=== PATIENT | male | born 1950 | race American Indian/Alaskan Native ===

== ENCOUNTER 2016-04-30 22:59 | Emergency (ER) | payer MEDICARE ==
[2016-05-01] MEDS ORDERED: NACL 0.9% 1000 ML 1,000 ML IV ONE (00:20)
[2016-05-01 01:08] LABS: Basophils % (Auto) 0.3 % (0.0-1.8); Eosinophils % (Auto) 0.7 % (0.0-4.3); Hemoglobin 10.8 gm/dl (11.8-15.2); Mean Corpuscular HGB Conc 33 % (32-34); Mean Corpuscular Hemoglobin 33 pg (28-32); Mean Corpuscular Volume 101 fl (84-94); Platelet Count 270 K/mm3 (140-440); Red Blood Count 3.26 M/mm3 (3.65-5.03); Red Cell Distribution Width 16.1 % (13.2-15.2); White Blood Count 5.8 K/mm3 (4.5-11.0)
[2016-05-01 01:13] LABS: Alanine Aminotransferase 24 units/L (7-56); Albumin 3.8 g/dL (3.9-5); Albumin/Globulin Ratio 1.4 %; Alkaline Phosphatase 96 units/L (35-129); BUN/Creatinine Ratio 19.16; Bilirubin,Total 0.6 mg/dL (0.1-1.2); Blood Urea Nitrogen 23 mg/dL (9-20); Calcium 8.6 mg/dL (8.4-10.2); Carbon Dioxide 23 mmol/L (22-30); Chloride 102.8 mmol/L (98-107); Glucose 145 mg/dL (75-100); Lipase 35 units/L (13-60); Potassium 4.3 mmol/L (3.6-5.0); Sodium 142 mmol/L (137-145); Total Protein 6.6 g/dL (6.3-8.2)
[2016-05-01 01:27] LABS: Anion Gap 21 mmol/L
[2016-05-01 01:28] LABS: INR 1.07 (0.87-1.13)
[2016-05-01 01:29] LABS: Partial Thromboplastin Time 27.5 Sec. (24.2-36.6)
[2016-05-01] MEDS ORDERED: NACL ONE (02:49)
--- NOTE | 2016-05-01 02:57 | Emergency Department Report ---
HPI - General Chief Complaint: GI Bleed Time Seen by Provider: 05/01/16 01:21 - HPI HPI: This is a 65-year-old Afro-[place] male who presents to the emergency department after he had dark red blood per rectum with some loose stool at about 10 PM. He had another bowel movement that was very similar just afterwards. He denies any abdominal pain, rectal pain, fever, nausea, vomiting , back pain. Patient has history of prostate cancer that was recently diagnosed in January and he has not yet started any type of chemotherapy or radiation. He also has history of non-insulin dependent diabetes, hypertension , hepatitis C. He has not taken anything for symptoms. Presentation. No recent travel or sick contacts at home. ED Past Medical Hx - Past Medical History Previous Medical History?: Yes Hx Hypertension: Yes Hx Diabetes: Yes Hx of Cancer: Yes (prostate ca) Additional medical history: hep c - Surgical History Past Surgical History?: Yes Additional Surgical History: stent to legs - Medications Home Medications: Home Medications Medication Instructions Recorded Confirmed Last Taken Type Albuterol Sulfate [Ventolin HFA] 2 puff IH Q4H PRN 05/01/16 05/01/16 1 Day Ago History 2 Amitriptyline [Elavil] 25 mg PO QHS 05/01/16 05/01/16 1 Day Ago History 25 Aspirin EC [Aspirin Enteric Coated 81 mg PO QDAY 05/01/16 05/01/16 1 Day Ago History TAB] 81 Doxazosin Mesylate [Cardura Xl] 4 mg PO DAILY 05/01/16 05/01/16 1 Day Ago History 4 Lisinopril [Zestril] 20 mg PO QDAY 05/01/16 05/01/16 1 Day Ago History 20 Metoprolol Xl [Metoprolol 100 mg PO QDAY 05/01/16 05/01/16 1 Day Ago History SUCCINATE ER TAB] 100 Simvastatin [Zocor TAB] 20 mg PO QHS 05/01/16 05/01/16 1 Day Ago History 20 metFORMIN [Glucophage] 500 mg PO BID 05/01/16 05/01/16 1 Day Ago History 500 traMADol [Ultram] 50 mg PO Q6HR PRN 05/01/16 05/01/16 1 Day Ago History 50 ED Review of Systems ROS: Stated complaint: RECTAL BLEEDING Other details as noted in HPI Comment: All other systems reviewed and negative Constitutional: denies: chills, fever Eyes: denies: eye pain, eye discharge, vision change ENT: denies: ear pain, throat pain Respiratory: denies: cough, shortness of breath, wheezing Cardiovascular: denies: chest pain, palpitations Gastrointestinal: abdominal pain, other (BRBPR). denies: nausea, vomiting, melena Genitourinary: denies: urgency, dysuria Musculoskeletal: denies: back pain, joint swelling, arthralgia Skin: denies: rash, lesions Neurological: denies: headache, weakness, paresthesias Physical Exam - Physical Exam Vital Signs: Vital Signs 04/30/16 23:58 Temperature 98.2 F Pulse Rate 133 H Respiratory 18 Rate Blood Pressure 116/75 O2 Sat by Pulse 99 Oximetry Physical Exam: GENERAL: The patient is well-developed well-nourished. HEENT: Normocephalic. Atraumatic. Extraocular motions are intact. Patient has moist mucous membranes. Pupils equal reactive to light bilaterally. NECK: Supple. Trachea is midline. CHEST/LUNGS: Clear to auscultation. There is no respiratory distress noted. HEART/CARDIOVASCULAR: Regular. There is mild tachycardia. There is no gallop rub or murmur. ABDOMEN: Abdomen is soft, nontender. Patient has normal bowel sounds. There is no abdominal distention. SKIN: There is no rash. There is no edema. There is no diaphoresis. NEURO: The patient is awake, alert, and oriented. The patient is cooperative. The patient has no focal neurologic deficits. The patient has normal speech. MUSCULOSKELETAL: There is no tenderness or deformity. There is no limitation range of motion. There is no evidence of acute injury. RECTAL: No rectal lesions seen. No gross blood. Positive stool for guaiac. ED Course Vital Signs 04/30/16 23:58 Temperature 98.2 F Pulse Rate 133 H Respiratory 18 Rate Blood Pressure 116/75 O2 Sat by Pulse 99 Oximetry ED Medical Decision Making - Lab Data Result diagrams: 05/01/16 00:34 05/01/16 00:34 - Radiology Data Radiology results: report reviewed CT of the abdomen and pelvis with IV contrast shows a 1 cm cyst in the mid pole of the left kidney. No kidney stones. No hydronephrosis. There is thickening of the distal esophagus. Stomach is also somewhat thickened. Esophagitis and gastritis not excluded. There is no obstruction or mass. No small bowel obstruction or enteritis. There are scattered diverticula of the colon. There is no diverticulitis or colitis or obstruction or mass. The appendix is normal. There is calcified plaque to the abdominal aorta. There is no aneurysm. There is no ascites, free air, abscess or adenopathy. - Medical Decision Making 65-year-old male presents to the emergency department with 2 episodes of bleeding per rectum but no pain in the abdomen or rectum. Patient's vitals have been stable including being afebrile, however the patient did have some tachycardia when he first came in. He was given IV fluid resuscitation and his tachycardia has completely resolved. Patient's labs are unremarkable and he has a stable hemoglobin at 10.5. Abdominal x-ray was done that did not show any acute process. However a CT of the abdomen and pelvis was done secondary to the fact that the patient has recent diagnosis of prostate cancer and I wanted to search for any possible metastasis or intestinal invasion that could be causing his bleeding. However the CT of the abdomen and pelvis shows diverticulosis without diverticulitis. This is most likely the source of the patient's bleeding. Patient has some positive stool for guaiac but no gross blood. He will be given a referral for a rn licensed practical and understands he may need a colonoscopy in the near future. He will return to the ER with any worsening of symptoms or any acute distress. - Differential Diagnosis hemorrhoids, diverticulosis, diverticulitis, colitis, malignancy Critical Care Time: No Critical care attestation.: If time is entered above; I have spent that time in minutes in the direct care of this critically ill patient, excluding procedure time. ED Disposition Clinical Impression: Rectal bleeding Diverticulosis Qualifiers: Diverticulosis site: diverticulosis of large intestine Diverticulosis bleeding : diverticulosis with bleeding Qualified Code(s): K57.31 - Diverticulosis of large intestine without perforation or abscess with bleeding Disposition: DISCHARGED TO HOME OR SELFCARE Is pt being admited?: No Does the pt Need Aspirin: No Condition: Stable Instructions: Diverticulosis (ED), Diverticulosis Diet (ED), Rectal Bleeding ( ED) Additional Instructions: Please follow-up with your primary care doctor in the next few days. I'll give him a referral for a local rn licensed practical to follow up regarding the rectal bleeding and diverticulosis, as you may need a colonoscopy in the near future. Return to the emergency department with any worsening of your symptoms or any acute distress. Referrals: JOSSE DAVIS V [Other] - 3-5 Days ORESTES DICKSON MD [Staff Physician] - 3-5 Days Forms: Accompanied Note Time of Disposition: 06:37
--- NOTE | 2016-05-01 06:25 | Cat Scan Report ---
FINAL REPORT PROCEDURE: CT ABDOMEN PELVIS W CON TECHNIQUE: Computerized axial tomography of the abdomen and pelvis was performed after the IV injection of iodinated nonionic contrast. HISTORY: Abd pain rectal bleeding COMPARISON: No prior studies are available for comparison. FINDINGS: Visualized lower thorax: No significant abnormality. Liver: Normal size and attenuation. Spleen: Normal size and attenuation. Gallbladder and biliary system: Normal. Pancreas: Normal. Adrenals: Normal. Kidneys: There is a 1 centimeters cyst in the midpole of the left kidney. There are no kidney stones. There is no hydronephrosis.. GI tract: There is thickening of the distal esophagus. Stomach is also somewhat thickened. Esophagitis and gastritis not excluded. There is no obstruction or mass. There is no small bowel obstruction or enteritis. There are scattered diverticula of the colon. There is no diverticulitis or colitis or obstruction or mass. If symptoms persist, colonoscopy may be indicated. The appendix is normal. Lymph nodes and mesentery: Normal. Vasculature: There is calcified plaque in the abdominal aorta. There is no aneurysm.. Bladder: Normal. Reproductive organs: Normal. Peritoneum: There is no ascites, free air, abscess or adenopathy.. Musculoskeletal structures: No significant abnormality. Other: There scarring in the right groin possibly from prior surgery.. IMPRESSION: There is a 1 centimeters cyst in the midpole of the left kidney. There are no kidney stones. There is no hydronephrosis.. There is thickening of the distal esophagus. Stomach is also somewhat thickened. Esophagitis and gastritis not excluded. There is no obstruction or mass. There is no small bowel obstruction or enteritis. There are scattered diverticula of the colon. There is no diverticulitis or colitis or obstruction or mass. If symptoms persist, colonoscopy may be indicated. The appendix is normal. There is calcified plaque in the abdominal aorta. There is no aneurysm.. There is no ascites, free air, abscess or adenopathy.. There scarring in the right groin possibly from prior surgery..
[2016-05-01 06:49] VITALS: BP 126/72
== END 2016-05-01 06:48 | disposition home or self-care (01) ==
LOC: ED 22:59
DX: K57.31 Diverticulosis of large intestine without perforation or abscess with bleeding (principal); K62.5 Hemorrhage of anus and rectum; I10 Essential (primary) hypertension; E11.9 Type 2 diabetes mellitus without complications; Z85.46 Personal history of malignant neoplasm of prostate; Z79.82 Long term (current) use of aspirin
CPT/HCPCS: 36415; 74020; 74177; 80053; 83690; 85025; 85610; 85730; 86850; 86900; 86901; 93005; 93010; 96360; 96361; 99285; J7030; Q9967

== ENCOUNTER 2016-06-25 06:13 | Inpatient (IN) | payer MEDICARE ==
--- NOTE | 2016-06-19 11:34 | Anesthesia Consultation ---
Anesthesia Consult and Med Hx Date of service: 06/19/16 (Scheduled for Robotic Prostatectomy w/ Dr. Perdomo on 06/25/16) - Airway Anesthetic Teeth Evaluation: Poor ROM Head & Neck: Adequate Mental/Hyoid Distance: Adequate Mallampati Class: Class II Intubation Access Assessment: Probably Good - Pulmonary Exam CTA: Yes - Cardiac Exam Cardiac Exam: RRR - Pre-Operative Health Status ASA Pre-Surgery Classification: ASA3 Proposed Anesthetic Plan: General - Pre-Anesthesia Comment Pre-Anesthesia Comments: No previous anesthesia complications. - Pulmonary Hx Smoking: Yes (1/2 PPD X 50 YRS) Hx Sleep Apnea: No (BRISEIDA PRE SCREEN HIGH RISK) - Cardiovascular System Hx Hypertension: Yes (X 12 YRS) Hx Coronary Artery Disease: No Hx Cardia Arrhythmia: Yes (Parox A. Fib) Hx Peripheral Vascular Disease: Yes (STENTS ESTEFANI LEGS, s/p Carotid endarterectomy ) - Central Nervous System Hx Seizures: No CVA: Yes (1994-SLURRED SPEACH AND LEFT SIDED WEAKNESS) - Gastrointestinal Hx Gastroesophageal Reflux Disease: No - Endocrine Hx Renal Disease: No Hx Non-Insulin Dependent Diabetes: Yes - Hematic Hx Anemia: Yes - Other Systems Hx Substance Use: Yes (MARIJUANA 2-3 X PER WEEK) Hx Cancer: Yes (Newly diagnosed prostate CA) Hx Obesity: No - Additional Comments Anesthesia Medical History Comments: Pt with h/o Parox A. Fib since 1994, states has occassional palpitations. Does not follow with cardiology. CHADSVASc = 6 (previous CVA, HTN, DM, PVD, Age) and current smoker. Unsure why pt not on OAC- high risk for CVA. Risks discussed with patient, needs f/u with cardiology after surgery.
[2016-06-19 11:35] LABS: Basophils % (Auto) 0.4 % (0.0-1.8); Hemoglobin 12.9 gm/dl (11.8-15.2); Mean Corpuscular HGB Conc 32 % (32-34); Mean Corpuscular Hemoglobin 31 pg (28-32); Mean Corpuscular Volume 95 fl (84-94); Platelet Count 282 K/mm3 (140-440); White Blood Count 5.2 K/mm3 (4.5-11.0)
[2016-06-19 11:45] LABS: INR 1.03 (0.87-1.13)
[2016-06-19 11:46] LABS: Partial Thromboplastin Time 29.2 Sec. (24.2-36.6)
[2016-06-19 11:54] LABS: Red Cell Distribution Width 23.3 % (13.2-15.2)
[2016-06-19 12:08] LABS: Alanine Aminotransferase 23 units/L (7-56); Albumin 4.2 g/dL (3.9-5); Albumin/Globulin Ratio 1.2 %; Alkaline Phosphatase 108 units/L (35-129); Anion Gap 19 mmol/L; BUN/Creatinine Ratio 15.71; Bilirubin,Total 0.9 mg/dL (0.1-1.2); Blood Urea Nitrogen 11 mg/dL (9-20); Calcium 9.1 mg/dL (8.4-10.2); Carbon Dioxide 21 mmol/L (22-30); Chloride 105.5 mmol/L (98-107); Glucose 83 mg/dL (75-100); Potassium 4.4 mmol/L (3.6-5.0); Sodium 141 mmol/L (137-145); Total Protein 7.6 g/dL (6.3-8.2)
--- NOTE | 2016-06-22 08:47 | Admit Criteria Form ---
Admission Criteria Documentation: AMBULATORY SURGERY EXCEPTION CRITERIA Ambulatory Surgery Exception Criteria ( Place 'X' for any and all applicable criteria): Surgery or procedure performed on ambulatory basis may require inpatient stay for[A] ANY ONE of the following(1)(2)(3)(4)(5)(6)(7)(8)(9): [X] I. A preoperative situation, condition, or finding that warrants inpatient stay as indicated by ANY ONE of the following: [] a) Inpatient care needed because of severity of a disease or condition rather than the surgery (eg, severe cardiac or respiratory disease, severe infection) (15) (16 ) (17) (18) [] b) Emergent procedure (eg, angioplasty for acute ischemia)(19) [] c) Complex surgical approach or situation as indicated by ANY ONE of the following(3): [] i) Open approach needed instead of usual endoscopic, transcatheter, or other less invasive procedure [] ii) Difficult approach because of previous operation [] iii) Airway monitoring required after open neck procedures(20)(21) [] iv) Large mass requiring unusually extensive dissection [] v) Additional complicating feature requiring inpatient care (eg, drain management)(22(23): [X] d) Major surgery in a pt with high anesthetic risk as indicated by ANY ONE of the following (2)(3)(5)(7)(8): [X] i) ASA risk class III or higher (severe systemic disease impairing function) [D] [] ii) Advanced age (eg, older than 85 years)(14)(24) [] iii) Symptomatic heart failure(25) [] iv) Symptomatic asthma or COPD(8)(21) [] v) Morbid obesity with hemodynamic or respiratory problems(20)( 21)(26)(27) [] vi) Obstructive sleep apnea(20)(21) [] vii) Former premature infants who are younger than 60 weeks [] viii) High risk for severe postoperative abnormalities (eg, severe postoperative hypocalcemia after parathyroidectomy for severe hyperparathyroidism)(27)( 28) [] ix) Unstable angina(25) [] e) Drug-related risk requiring inpatient stay as indicated by ANY ONE of the following(5)(10)(14)(32)(33) [] i) Procedure requires discontinuing drugs or other therapy (eg , antiarrhythmic medication, antiseizure medication), which necessitates inpatient observation or treatment.(18)(31) [] ii) Major surgery and high risk drug use as indicated by ANY ONE of the following: [] 1) Active abuse of cocaine or similar drug [] 2) Monoamine oxidase inhibitor use [] 3) Other drug identified as posing risk [] f) Inadequate outpatient care situation as indicated by ANY ONE of the following(5)(10)(14)(32)(33) [] i) Patient lives remote from medical facility and procedure has urgent complication potential, and temporary nearby residence cannot be arranged [] ii) Patient will have postprocedure incapacitation and inadequate assistance at home, or alternative level of care cannot be arranged. [] iii) Patient will have long general anesthesia or procedure side effect resolution time, and competent person to stay with patient on first postoperative night at home or alternative level of care cannot be arranged. []iv) Other inadequate outpatient situation that cannot be handled by other means [] II. A perioperative event, condition, or finding that warrants inpatient stay as indicated by ANY ONE of the following (1)(2)(3): [] a) Inadequate physiologic recovery: cardiovascular, respiratory, or hemodynamic status not normal or near preoperative baseline(18) [] b) Hemodynamic instability [] c) Patient not alert with near normal or baseline mental status [] d) Temperature not normal or as expected and not appropriate for outpatient treatment of condition [] e) Ambulatory or appropriate activity level status not yet achieved post procedure [E](34)(35)(36) [] f) Operative site not appropriate (eg, unexpected or excessive drainage or bleeding) [] g) Postoperative effects not resolved or adequately managed (eg, significant pain or vomiting not appropriate for outpatient or next level of care)(10)(12) [] h) Complicating features requiring inpatient care as indicated by ANY ONE of the following(37): [] i) Severe complications of procedure (eg, bowel injury, airway compromise, vascular injury,severe hemorrhage) [] ii) Extensive (eg, dissection far beyond usual scope of procedure ) or prolonged (eg, 120 minutes beyond usual) surgery needed requiring inpatient postoperative care [] iii) Conversion to an open or complex procedure that requires inpatient care (eg, open vs laparoscopic cholecystectomy, abdominal vs vaginal hysterectomy)(38) [] iv) Comorbid condition or test result identified during or post procedure that requires inpatient care (7) [] v) Malignant hyperthermia(30) [] vi) Other complicating feature requiring inpatient care(22)(23) Inpatient stay may be needed until ALL of the following are present (1)(2)(3)(4) (5)(6)(10)(14)(33)(40): []a) Physiologic recovery: cardiovascular, respiratory, and hemodynamic status normal or near preoperative baseline []b) Hemodynamic stability []c) Patient alert, with near normal or baseline mental status []d) Temperature appropriate: patient afebrile or temperature appropriate for outpt treatment of condition []e) Activity level appropriate: ambulatory or appropriate activity level post procedure []f) Operative site appropriate as indicated by ALL of the following: []i) Site dry or with expected drainage []ii) Any blood noted is as expected for procedure. []g) Postoperative effects resolved or managed as indicated by ALL of the following: []i) Pain management appropriate for outpatient (or next level of) care(10) []ii) Minimal nausea and vomiting: if present, successfully treated with oral medication(12) []iii) Headache, dizziness, or drowsiness (if present) are mild. []h) Voiding status acceptable as indicated by ANY ONE of the following: []i) Voiding spontaneously []ii) No voiding but instructions given for follow-up in 6 to 8 hours []iii) Urinary catheter in place, and instructions given for follow-up []i) Complicating features requiring inpatient care manageable at a lower level of care(37) []j) Comorbid conditions manageable at a lower level of care(37) The original [employer] content created by [employer] has been revised. The portions of the content which have been revised are identified through the use of italic text or in bold, and [facility] [employer] has neither reviewed nor approved the modified material. All other unmodified content is copyright [employer]. Please see references footnoted in the original [employer] edition 2016 Admission Criteria Met: Yes
[~2016-06-25 06:13] MED LIST: ANCEF/STERILE WATER 2 GM/20 ML IV NR; NACL 0.9% 1000 ML 1,000 ML IV SCH; PEPCID PO NR; VERSED IV NR
[2016-06-25] MEDS ORDERED: NACL BACTERIOSTATIC INFILTRATI ONE (06:40)
[2016-06-25] MEDS ORDERED: SUBLIMAZE IV NR (07:14)
[2016-06-25] MEDS ORDERED: ZOFRAN IV PRN ×2 (07:14→12:00)
[2016-06-25] MEDS ORDERED: MARCAINE-EPI 0.5%-1:200,000 INFILTRATI ONE ×2 (07:30→09:05)
[2016-06-25] MEDS ORDERED: DECADRON ONE (07:30)
[2016-06-25] MEDS ORDERED: MARCAINE-EPI/PF 0.5%-1:200,000 INFILTRATI ONE (07:30)
[2016-06-25] MEDS ORDERED: XYLOCAINE 1% 20 mL ONE (07:31)
--- NOTE | 2016-06-25 07:33 | Anesthesia Day of Surgery ---
Anesthesia Day of Surgery - Day of Surgery Patient Examined: Yes Patient H&P Reviewed: Yes Patient is NPO: Yes Beta Blockers: Yes
[2016-06-25] MEDS ORDERED: DIPRIVAN 10 MG/ML IV ONE (07:45)
[2016-06-25] MEDS ORDERED: DILAUDID ONE (07:45)
[2016-06-25] MEDS ORDERED: ZEMURON IV ONE (07:45)
[2016-06-25] MEDS ORDERED: XYLOCAINE MPF 2% ONE (07:45)
[2016-06-25] MEDS ORDERED: WATER FOR IRRIG STERILE IR ONE (09:05)
[2016-06-25] MEDS ORDERED: NACL 0.9% IR ONE ×2 (09:05→09:06)
[2016-06-25] MEDS ORDERED: ACD-A IV ONE (09:06)
[2016-06-25] MEDS ORDERED: THROMBIN (BOVINE) TP ONE (09:07)
[2016-06-25] MEDS ORDERED: CALCIUM CHLORIDE IV ONE (09:07)
[2016-06-25] MEDS ORDERED: NACL 0.9% 1000 ML ONE (09:51)
[2016-06-25] MEDS ORDERED: NACL 0.9% 100 ML ONE (09:51)
[2016-06-25] MEDS ORDERED: ZOFRAN ONE (09:51)
[2016-06-25] MEDS ORDERED: ROBINUL ONE (09:52)
[2016-06-25] MEDS ORDERED: NEOSTIGMINE ONE (09:52)
[2016-06-25] MEDS ORDERED: D50W (25GM) IV PRN (10:40)
[2016-06-25] MEDS ORDERED: NARCAN 0.4 MG/1 ML IV PRN (10:40)
--- NOTE | 2016-06-25 10:40 | Post Operative Note ---
Pre-op diagnosis: prostate cancer - jacoby 3+4 / psa 5.5 Post-op diagnosis: same Procedure: robotic propstatectomy Anesthesia: GETDayanna Surgeon: MAYUR LYNCH [employer] Coordinator: NICOLÁS DONNELLY Estimated blood loss: other (250cc) Pathology: list (prostate) Specimen disposition: to lab Condition: stable Disposition: PACU (jesenia case, post op info on chart)
[2016-06-25] MEDS ORDERED: PROAIR IH PRN (10:45)
[2016-06-25] MEDS ORDERED: MORPHINE IV PRN (11:00)
[2016-06-25] MEDS ORDERED: NACL 0.9% 1000 ML 1,000 ML IV SCH (11:00)
[2016-06-25] MEDS ORDERED: NORCO 5/325 PO PRN (11:00)
[2016-06-25] MEDS: DILAUDID IV PRN ×8 (11:05→13:25)
--- NOTE | 2016-06-25 11:50 | Operative Report ---
PREOPERATIVE DIAGNOSES: Prostate cancer, [place] 3+4, PSA 5.5. POSTOPERATIVE DIAGNOSES: Prostate cancer, [place] 3+4, PSA 5.5. SECONDARY DIAGNOSES: Hypertension, diabetes, hepatitis C. PROCEDURE: Robotic-assisted laparoscopic prostatectomy. SURGEON: Nader Perdomo MD HARDENING MACHINE OPERATOR: Valentin Garcia ANESTHESIA: General. ANESTHESIOLOGIST: Kristi York MD ESTIMATED BLOOD LOSS: 250 mL. FLUIDS: Crystalloid 125 of Cell Saver. Nghia-Aldana drain x 1. COMPLICATIONS: No complications. INDICATIONS: This patient is a 65-year-old gentleman referred by Dr. Elías Greenfield with the diagnosis of prostate cancer. The patient has relocated from [place], [place], where he underwent prostate biopsy in 01/[address] Hanson . He was found to have a [place] score 3+4 bilaterally with a PSA of 5.5. We discussed options. Written information was given. He agreed to proceed with surgical intervention. Also, of note, he is a smoker, uses a cane and has neuropathy. DESCRIPTION OF PROCEDURE: The patient was taken to the operative suite, placed in a supine position. After adequate general anesthesia, he was prepped and draped in a sterile fashion. Joseph catheter was placed on the operative field. Modified dorsal lithotomy position was made. A 1 cm supraumbilical incision was made. Towel clips were placed. Veress needle was used, drop test was negative. Opening pressure was 3 cm of water. Insufflation to 15 cm of water was used. The patient had a groin incision on the right side, appeared to be due to his vascular disease. A 15 cm was marked from the pubic symphysis, was marked cephalad, and 9 cm lateral, and additional 9 cm lateral to the midline was performed. The 8 mm ports were placed in the various as well as a 5 and a 10 mm helper ports were placed on the right side. A 0-degree lens was used for entering the abdomen. No obvious injury could be appreciated. No signs of metastatic disease was noted. All the ports were placed under direct vision. The patient was then placed in a exaggerated Trendelenburg position, robotic cart was docked between the legs, posterior to the bladder and prostate the second arch was scored. Seminal vesicles and vas deferens could be appreciated. They were dissected out. The tissue appeared somewhat sticky, I am not sure if this was due to some of the medicines that he had been on or previous infection. Dissection between the prostate and the rectum to the apex was performed without difficulty. vas deferens were transected bilaterally. Attention was then taken to the anterior abdominal wall. The dissection was performed lateral to the lateral umbilical ligament, pubic bone was exposed and then across the midline bladder was dropped. Endopelvic fascia was entered bilaterally without difficulty. Dorsal vein complex was controlled with a 45 mm stapler without difficulty. Manipulation of the Joseph revealed the bladder neck, which was scored anteriorly. Joseph catheter was deflated and then used for anterior traction. Posterior bladder neck was then transected exposing the seminal vesicles and vas deferens. They were retracted anteriorly. Lateral pedicles were taken down with the vascular stapler without difficulty. Dissection was taken to the apex of the prostate, it was transected. The urethra was transected and the prostate was placed in the EndoCatch bag. Copious irrigation was performed. Adequate hemostasis achieved. [place] stitch was placed in the 12 o'clock position in the bladder neck and bladder neck reconstruction was performed tapering down to accommodate an 18-[place] Joseph catheter. Reconstruction was performed with a 5 o'clock and 7 o'clock positions using 2-0 Vicryl in interrupted fashion. Double armed Vioxx stitch was placed in the 6 o'clock position of the bladder neck corresponding the aspect of the urethra in a running stitch bilaterally. A new 18-[place] Joseph catheter was placed without difficulty. The V-lock stitch was cinched down. Joseph catheter was irrigated. No clot or leak. A 15 mL of water was placed in the balloon. Platelet rich plasma and platelet poor plasma was injected in the pelvis and around the anastomosis. A 10 mm Nghia-Aldana drain was brought out through the 8 mm port on the left side and tied in the position with 2-0 silk in interrupted fashion. The patient was then placed in a supine position, robotic cart undocked. Supraumbilical incision was extended to allow removal of the prostate without difficulty. The supraumbilical incision was then closed with #1 Vicryl in a [id number] fashion. The drain was tied with 2-0 silk in an interrupted fashion. The skin was closed with 4-0 Vicryl in interrupted fashion. Joseph catheter site port was folded over and tied with 0 silk to prevent removal. The patient tolerated the procedure well. insurance assistant, Valentin Garcia, was present throughout the procedure. Assisted at the bedside with dissection and transfer of instruments. The patient will be observed overnight and go home on [facility] and [place]. JOB# [id number] DKC/NTS
[2016-06-25 11:55] LABS: Hematocrit 37.9 % (35.5-45.6); Mean Corpuscular HGB Conc 32 % (32-34); Mean Corpuscular Hemoglobin 30 pg (28-32); Mean Corpuscular Volume 96 fl (84-94); Platelet Count 222 K/mm3 (140-440); Red Blood Count 3.96 M/mm3 (3.65-5.03)
[2016-06-25] MEDS ORDERED: ULTRAM PO PRN (12:00)
[2016-06-25] MEDS ORDERED: PROVENTIL IH PRN (12:00)
[2016-06-25 12:05] LABS: Anion Gap 18 mmol/L; Blood Urea Nitrogen 12 mg/dL (9-20); Calcium 7.9 mg/dL (8.4-10.2); Carbon Dioxide 20 mmol/L (22-30); Chloride 105.4 mmol/L (98-107); Glucose 136 mg/dL (75-100); Potassium 4.2 mmol/L (3.6-5.0); Sodium 139 mmol/L (137-145)
[2016-06-25] MEDS: NORMODYNE IV NR ×2 (12:30→13:00)
--- NOTE | 2016-06-25 12:36 | Post Anesthesia Evaluation ---
- Post Anesthesia Evaluation Patient Participated: Yes Airway Patent: Yes Stable Respiratory Function: Yes Temp > 96.8F: Yes Pain Manageable: Yes Adequeate Hydration: Yes Anesthesia Complications: No Block Receding Appropriately: Not Applicable
[2016-06-25 12:38] LABS: Anisocytosis 1+; Basophils % (Manual) 0 % (0.0-1.8); Blastocytes % (Manual) 0 %; Diff Status Complete; Eosinophils % (Manual) 0 % (0.0-4.3); Ovalocytes 1+; Polychromasia Few; Total Cells Counted Percent 0
[2016-06-25] MEDS ORDERED: LOPRESSOR IV NR (13:36)
[2016-06-25] MEDS ORDERED: VERSED ONE (14:09)
[2016-06-25] MEDS ORDERED: VERSED IV ONE (14:13)
[2016-06-25] MEDS ORDERED: ANCEF/NS 1 GM/50 ML 1 GM/50 ML BAG IV SCH (16:00)
[2016-06-25] MEDS: NOVOLOG SUB-Q SCH ×2 (18:13→18:42)
[2016-06-25] MEDS ORDERED: ZOCOR PO SCH (22:00)
[2016-06-25] MEDS ORDERED: AMBIEN PO PRN (22:00)
[2016-06-25] MEDS ORDERED: ELAVIL PO SCH (22:00)
[2016-06-25] MEDS ORDERED: GLUCOPHAGE PO SCH (22:00)
--- NOTE | 2016-06-25 23:20 | Consultation ---
History of Present Illness - Reason for Consult Consult date: 06/25/16 Medical management Requesting physician: MAYUR LYNCH - History of Present Illness S/p Robotic prostatectomy Past History Past Medical History: diabetes, hypertension, hyperlipidemia, other (BPH) Past Surgical History: Other (s/p prostatectomy-robotic) Social history: denies: smoking, alcohol abuse Family history: hypertension Medications and Allergies Allergies Allergy/AdvReac Type Severity Reaction Status Date / Time No Known Allergies Allergy Verified 05/01/16 00:02 Home Medications Medication Instructions Recorded Confirmed Last Taken Type Albuterol Sulfate [Ventolin HFA] 2 puff IH Q4H PRN 05/01/16 06/25/16 1 Day Ago History 2 Amitriptyline [Elavil] 25 mg PO QHS 05/01/16 06/25/16 06/24/16 History Aspirin EC [Aspirin Enteric Coated 81 mg PO QDAY 05/01/16 06/25/16 06/16/16 History TAB] Doxazosin Mesylate [Cardura Xl] 4 mg PO DAILY 05/01/16 06/25/16 06/24/16 History Lisinopril [Zestril] 20 mg PO QDAY 05/01/16 06/25/16 06/25/16 History Metoprolol Xl [Metoprolol 100 mg PO QDAY 05/01/16 06/25/16 06/25/16 History SUCCINATE ER TAB] Simvastatin [Zocor TAB] 20 mg PO QHS 05/01/16 06/25/16 06/23/16 History metFORMIN [Glucophage] 500 mg PO BID 05/01/16 06/25/16 06/24/16 History traMADol [Ultram] 50 mg PO Q6HR PRN 05/01/16 06/25/16 06/11/16 History Active Meds: Active Medications Acetaminophen/Hydrocodone Bitart ([place] 5/325) 2 each PO Q4H PRN PRN Reason: Pain, Moderate (4-6) Last Admin: 06/25/16 22:07 Dose: 2 each Albuterol (Proventil) 2.5 mg IH Q4HRT PRN PRN Reason: Shortness Of Breath Amitriptyline HCl (Elavil) 25 mg PO QHS [facility] Last Admin: 06/25/16 22:07 Dose: 25 mg Cefazolin Sodium (Ancef/Sterile Water 2 Gm/20 Ml) 2 gm IV PREOP NR Stop: 06/25/16 23:59 Dextrose (D50w (25gm)) 50 ml IV PRN PRN PRN Reason: Hypoglycemia Doxazosin Mesylate (Cardura) 4 mg PO QDAY [facility] Famotidine (Pepcid) 20 mg PO PREOP NR Stop: 06/25/16 23:59 Last Admin: 06/25/16 07:13 Dose: 20 mg Fentanyl (Sublimaze) 100 mcg IV ONCE NR Stop: 06/25/16 23:59 Last Admin: 06/25/16 07:38 Dose: 50 mcg Cefazolin Sodium (Ancef/Ns 1 Gm/50 Ml) 1 gm in 50 mls @ 100 mls/hr IV Q8H [facility] PRN Reason: Protocol Stop: 06/26/16 00:29 Last Admin: 06/25/16 16:08 Dose: 100 mls/hr Sodium Chloride (Nacl 0.9% 1000 Ml) 1,000 mls @ 100 mls/hr IV DIRECT [facility] Insulin Aspart (Novolog) 0 units SUB-Q Q6HR [facility] PRN Reason: Protocol Last Admin: 06/25/16 18:42 Dose: Not Given Lisinopril (Zestril) 20 mg PO QDAY [facility] Metformin HCl (Glucophage) 500 mg PO BID [facility] Last Admin: 06/25/16 22:06 Dose: 500 mg Metoprolol Succinate (Toprol Xl) 100 mg PO QDAY [facility] Midazolam HCl (Versed) 2 mg IV PREOP NR Stop: 06/25/16 23:59 Last Admin: 06/25/16 07:38 Dose: 2 mg Morphine Sulfate (Morphine) 4 mg IV Q4H PRN PRN Reason: Pain , Severe (7-10) Last Admin: 06/25/16 15:53 Dose: 4 mg Naloxone HCl (Narcan 0.4 Mg/1 Ml) 0.1 mg IV Q2MIN PRN PRN Reason: Res Rate </= 8 or 02 SAT < 92% Ondansetron HCl (Zofran) 4 mg IV Q8H PRN PRN Reason: Nausea And Vomiting Simvastatin (Zocor) 20 mg PO QHS [facility] Last Admin: 06/25/16 22:07 Dose: 20 mg Tramadol HCl (Ultram) 50 mg PO Q6H PRN PRN Reason: Pain Zolpidem Tartrate (Ambien) 5 mg PO QHS PRN PRN Reason: Sleep Review of Systems All systems: negative Exam - Constitutional Vitals: Temp Pulse Resp BP Pulse Ox 98.4 F 81 20 169/94 98 06/25/16 19:22 06/25/16 19:22 06/25/16 19:22 06/25/16 19:22 06/25/16 19:22 General appearance: Present: no acute distress, well-nourished - EENT Eyes: Present: PERRL ENT: hearing intact, clear oral mucosa - Neck Neck: Present: supple, normal ROM - Respiratory Respiratory effort: normal Respiratory: bilateral: CTA - Cardiovascular Heart Sounds: Present: S1 & S2. Absent: rub, click - Extremities Extremities: pulses symmetrical, No edema Peripheral Pulses: within normal limits - Abdominal General gastrointestinal: Present: soft, non-tender, non-distended, normal bowel sounds Male genitourinary: Present: normal - Integumentary Integumentary: Present: clear, warm, dry - Musculoskeletal Musculoskeletal: gait normal, strength equal bilaterally - Psychiatric Psychiatric: appropriate mood/affect, intact judgment & insight - Neurologic Neurologic: CNII-XII intact, moves all extremities Results - Labs CBC & Chem 7: 06/25/16 11:48 06/25/16 11:48 Labs: Abnormal lab results 06/25/16 06/25/16 06/25/16 Range/Units 11:10 11:48 11:48 MCV 96 H (84-94) fl RDW 23.0 H (13.2-15.2) % Seg Neuts % (Manual) 93.0 H (40.0-70.0) % Lymphocytes % (Manual) 7.0 L (13.4-35.0) % Seg Neutrophils # Man 9.3 H (1.8-7.7) K/mm3 Lymphocytes # (Manual) 0.7 L (1.2-5.4) K/mm3 Carbon Dioxide 20 L (22-30) mmol/L Glucose 136 H (75-100) mg/dL POC Glucose 133 H (70-105) Calcium 7.9 L (8.4-10.2) mg/dL 06/25/16 06/25/16 Range/Units 16:16 21:19 MCV (84-94) fl RDW (13.2-15.2) % Seg Neuts % (Manual) (40.0-70.0) % Lymphocytes % (Manual) (13.4-35.0) % Seg Neutrophils # Man (1.8-7.7) K/mm3 Lymphocytes # (Manual) (1.2-5.4) K/mm3 Carbon Dioxide (22-30) mmol/L Glucose (75-100) mg/dL POC Glucose 173 H 245 H (70-105) Calcium (8.4-10.2) mg/dL Assessment and Plan WD WN male lying in bed comfortably,minimal pain - Patient Problems (1) Status post prostatectomy Current Visit: Yes Status: Acute Plan to address problem: Robotic-doing well.Minimal pain. (2) HTN (hypertension) Current Visit: Yes Status: Chronic Qualifiers: Hypertension type: essential hypertension Qualified Code(s): I10 - Essential (primary) hypertension Plan to address problem: Cont Metoprolol XL 100mg po qd and Lisinopril 20 mg po qd (3) T2DM (type 2 diabetes mellitus) Current Visit: Yes Status: Chronic Qualifiers: Diabetes mellitus complication status: without complication Diabetes mellitus complication detail: D Diabetic retinopathy severity: D Proliferative retinopathy type: P Diabetes mellitus macular edema: D Diabetes mellitus alf insulin use: without medical terminologist use Laterality: L Chronic kidney disease stage: C Qualified Code(s): E11.9 - Type 2 diabetes mellitus without complications Plan to address problem: Cont Metformin and coverage.Check Hba1c. (4) HLD (hyperlipidemia) Current Visit: Yes Status: Acute Qualifiers: Hyperlipidemia type: H Plan to address problem: Cont Simvastatin 20 mg po q qhs. (5) COPD (chronic obstructive pulmonary disease) Current Visit: Yes Status: Chronic Qualifiers: COPD type: emphysema Chronic bronchitis type: C Emphysema type: E Plan to address problem: Cont Albuterol inhaler (6) DVT prophylaxis Current Visit: Yes Status: Acute Plan to address problem: On SCD's
[2016-06-26] MEDS: NOVOLOG SUB-Q SCH ×2 (00:05→06:30)
[2016-06-26 07:01] LABS: Basophils % (Auto) 0.1 % (0.0-1.8); Hematocrit 30.5 % (35.5-45.6); Hemoglobin 9.8 gm/dl (11.8-15.2); Mean Corpuscular HGB Conc 32 % (32-34); Mean Corpuscular Hemoglobin 30 pg (28-32); Mean Corpuscular Volume 94 fl (84-94); Platelet Count 191 K/mm3 (140-440); Red Blood Count 3.24 M/mm3 (3.65-5.03); White Blood Count 9.9 K/mm3 (4.5-11.0)
[2016-06-26 07:02] LABS: Red Cell Distribution Width 22.7 % (13.2-15.2)
[2016-06-26 07:24] LABS: Anion Gap 13 mmol/L; Blood Urea Nitrogen 16 mg/dL (9-20); Calcium 7.5 mg/dL (8.4-10.2); Carbon Dioxide 24 mmol/L (22-30); Glucose 155 mg/dL (75-100); Potassium 4.3 mmol/L (3.6-5.0); Sodium 138 mmol/L (137-145)
[2016-06-26] MEDS ORDERED: NOVOLOG SUB-Q SCH (07:30)
[2016-06-26] MEDS ORDERED: GLUCOPHAGE PO SCH (08:00)
--- NOTE | 2016-06-26 08:58 | Short Stay Summary ---
Short Stay Documentation Date of service: 06/25/16 - History H&P: obtained from office Past Medical History: diabetes, hypertension, hyperlipidemia, other (BPH) Past Surgical History: Other (s/p prostatectomy-robotic) Social history: no smoking, no alcohol abuse - Allergies and Medications Current Medications: Allergies No Known Allergies Allergy (Verified 05/01/16 00:02) Home Medications Medication Instructions Recorded Confirmed Last Taken Type Albuterol Sulfate [Ventolin HFA] 2 puff IH Q4H PRN 05/01/16 06/25/16 1 Day Ago History 2 Amitriptyline [Elavil] 25 mg PO QHS 05/01/16 06/25/16 06/24/16 History Aspirin EC [Aspirin Enteric Coated 81 mg PO QDAY 05/01/16 06/25/16 06/16/16 History TAB] Doxazosin Mesylate [Cardura Xl] 4 mg PO DAILY 05/01/16 06/25/16 06/24/16 History Lisinopril [Zestril] 20 mg PO QDAY 05/01/16 06/25/16 06/25/16 History Metoprolol Xl [Metoprolol 100 mg PO QDAY 05/01/16 06/25/16 06/25/16 History SUCCINATE ER TAB] Simvastatin [Zocor TAB] 20 mg PO QHS 05/01/16 06/25/16 06/23/16 History metFORMIN [Glucophage] 500 mg PO BID 05/01/16 06/25/16 06/24/16 History traMADol [Ultram] 50 mg PO Q6HR PRN 05/01/16 06/25/16 06/11/16 History Active Medications Acetaminophen/Hydrocodone Bitart ([place] 5/325) 2 each PO Q4H PRN PRN Reason: Pain, Moderate (4-6) Last Admin: 06/25/16 22:07 Dose: 2 each Albuterol (Proventil) 2.5 mg IH Q4HRT PRN PRN Reason: Shortness Of Breath Amitriptyline HCl (Elavil) 25 mg PO QHS [facility] Last Admin: 06/25/16 22:07 Dose: 25 mg Dextrose (D50w (25gm)) 50 ml IV PRN PRN PRN Reason: Hypoglycemia Doxazosin Mesylate (Cardura) 4 mg PO QDAY [facility] Sodium Chloride (Nacl 0.9% 1000 Ml) 1,000 mls @ 100 mls/hr IV DIRECT [facility] Insulin Aspart (Novolog) 0 units SUB-Q Q6HR [facility] PRN Reason: Protocol Last Admin: 06/26/16 06:30 Dose: Not Given Insulin Aspart (Novolog) 0 units SUB-Q ACHS [facility] PRN Reason: Protocol Lisinopril (Zestril) 20 mg PO QDAY [facility] Metformin HCl (Glucophage) 500 mg PO BIDDIAB [facility] Metoprolol Succinate (Toprol Xl) 100 mg PO QDAY [facility] Morphine Sulfate (Morphine) 4 mg IV Q4H PRN PRN Reason: Pain , Severe (7-10) Last Admin: 06/25/16 15:53 Dose: 4 mg Naloxone HCl (Narcan 0.4 Mg/1 Ml) 0.1 mg IV Q2MIN PRN PRN Reason: Res Rate </= 8 or 02 SAT < 92% Ondansetron HCl (Zofran) 4 mg IV Q8H PRN PRN Reason: Nausea And Vomiting Simvastatin (Zocor) 20 mg PO QHS [facility] Last Admin: 06/25/16 22:07 Dose: 20 mg Tramadol HCl (Ultram) 50 mg PO Q6H PRN PRN Reason: Pain Zolpidem Tartrate (Ambien) 5 mg PO QHS PRN PRN Reason: Sleep - Physical exam Extremities: pulses symmetrical, No edema - Brief post op/procedure progress note Date of procedure: 06/25/16 Pre-op diagnosis: prostate cancer Post-op diagnosis: same Procedure: robotic prostatectomy Anesthesia: LUDA Surgeon: MAYUR LYNCH Field Radio Technician: NICOLÁS DONNELLY Estimated blood loss: other (200cc) Pathology: list (prostate) Specimen disposition: to lab Condition: stable - Hospital course Hospital course: norco,renaldoro,post op info on chart - Disposition Condition at discharge: Stable Disposition: DISCHARGED TO HOME OR SELFCARE Short Stay Discharge Plan Follow up with: AILYN AZUL MD [Primary Care Provider] - 7 Days
[2016-06-26] MEDS ORDERED: CARDURA PO SCH (10:00)
[2016-06-26] MEDS ORDERED: TOPROL XL PO SCH (10:00)
[2016-06-26] MEDS ORDERED: ZESTRIL PO SCH (10:00)
[2016-06-26] MEDS ORDERED: DOXAZOSIN MESYLATE 4 MG PO SCH (10:00)
[2016-06-26 10:11] VITALS: BP 147/81
--- NOTE | 2016-06-26 10:54 | Progress Note ---
Subjective Date of service: 06/26/16 Interval history: 1st POD after robotic prostatectomy Patient is in the bed in no distress, relatively comfortable. Pain is mostly controlled with pain meds. No nausea or vomiting. No anesthesia complications Objective - Constitutional Vitals: Vital Signs - 12hr 06/25/16 06/26/16 06/26/16 23:40 08:00 09:21 Temperature 98.0 F 97.7 F Pulse Rate Pulse Rate [ 81 94 H From Monitor] Respiratory 20 18 Rate Blood Pressure Blood Pressure 143/83 146/72 [Right Arm] O2 Sat by Pulse 100 99 96 Oximetry 06/26/16 06/26/16 10:10 10:24 Temperature Pulse Rate 96 H Pulse Rate [ 96 H From Monitor] Respiratory Rate Blood Pressure 147/81 Blood Pressure 147/81 [Right Arm] O2 Sat by Pulse Oximetry - Labs CBC & Chem 7: 06/26/16 06:17 06/26/16 06:17 Labs: Abnormal lab results 06/25/16 06/25/16 06/25/16 Range/Units 11:10 11:48 11:48 RBC (3.65-5.03) M/mm3 Hgb (11.8-15.2) gm/dl Hct (35.5-45.6) % MCV 96 H (84-94) fl RDW 23.0 H (13.2-15.2) % Lymph % (Auto) (13.4-35.0) % [place] % (Auto) (0.0-7.3) % Lymph # (1.2-5.4) K/mm3 [place] # (0.0-0.8) K/mm3 Seg Neutrophils % (40.0-70.0) % Seg Neuts % (Manual) 93.0 H (40.0-70.0) % Lymphocytes % (Manual) 7.0 L (13.4-35.0) % Seg Neutrophils # (1.8-7.7) K/mm3 Seg Neutrophils # Man 9.3 H (1.8-7.7) K/mm3 Lymphocytes # (Manual) 0.7 L (1.2-5.4) K/mm3 Carbon Dioxide 20 L (22-30) mmol/L Glucose 136 H (75-100) mg/dL POC Glucose 133 H (70-105) Calcium 7.9 L (8.4-10.2) mg/dL 06/25/16 06/25/16 06/26/16 Range/Units 16:16 21:19 05:22 RBC (3.65-5.03) M/mm3 Hgb (11.8-15.2) gm/dl Hct (35.5-45.6) % MCV (84-94) fl RDW (13.2-15.2) % Lymph % (Auto) (13.4-35.0) % [place] % (Auto) (0.0-7.3) % Lymph # (1.2-5.4) K/mm3 [place] # (0.0-0.8) K/mm3 Seg Neutrophils % (40.0-70.0) % Seg Neuts % (Manual) (40.0-70.0) % Lymphocytes % (Manual) (13.4-35.0) % Seg Neutrophils # (1.8-7.7) K/mm3 Seg Neutrophils # Man (1.8-7.7) K/mm3 Lymphocytes # (Manual) (1.2-5.4) K/mm3 Carbon Dioxide (22-30) mmol/L Glucose (75-100) mg/dL POC Glucose 173 H 245 H 164 H (70-105) Calcium (8.4-10.2) mg/dL 06/26/16 06/26/16 Range/Units 06:17 06:17 RBC 3.24 L (3.65-5.03) M/mm3 Hgb 9.8 L (11.8-15.2) gm/dl Hct 30.5 L D (35.5-45.6) % MCV (84-94) fl RDW 22.7 H (13.2-15.2) % Lymph % (Auto) 6.2 L (13.4-35.0) % [place] % (Auto) 10.5 H (0.0-7.3) % Lymph # 0.6 L (1.2-5.4) K/mm3 [place] # 1.0 H (0.0-0.8) K/mm3 Seg Neutrophils % 83.2 H (40.0-70.0) % Seg Neuts % (Manual) (40.0-70.0) % Lymphocytes % (Manual) (13.4-35.0) % Seg Neutrophils # 8.3 H (1.8-7.7) K/mm3 Seg Neutrophils # Man (1.8-7.7) K/mm3 Lymphocytes # (Manual) (1.2-5.4) K/mm3 Carbon Dioxide (22-30) mmol/L Glucose 155 H (75-100) mg/dL POC Glucose (70-105) Calcium 7.5 L (8.4-10.2) mg/dL
--- NOTE | 2016-06-26 14:08 | Progress Note ---
Assessment and Plan - Patient Problems (1) DVT prophylaxis Current Visit: Yes Status: Acute (2) HLD (hyperlipidemia) Current Visit: Yes Status: Acute Qualifiers: Hyperlipidemia type: H (3) HTN (hypertension) Current Visit: Yes Status: Chronic Qualifiers: Hypertension type: essential hypertension Qualified Code(s): I10 - Essential (primary) hypertension (4) T2DM (type 2 diabetes mellitus) Current Visit: Yes Status: Chronic Qualifiers: Diabetes mellitus complication status: without complication Diabetes mellitus complication detail: D Diabetic retinopathy severity: D Proliferative retinopathy type: P Diabetes mellitus macular edema: D Diabetes mellitus half-way insulin use: without half-way use Laterality: L Chronic kidney disease stage: C Qualified Code(s): E11.9 - Type 2 diabetes mellitus without complications History Interval history: Pt lying in bed, Pt denies pain. No reported nursing events. Pt denies fever, chills, CP, Palpitations. Hospitalist Physical - Constitutional Vitals: Temp Pulse Resp BP Pulse Ox 97.7 F 96 H 18 147/81 96 06/26/16 08:00 06/26/16 11:15 06/26/16 08:00 06/26/16 11:15 06/26/16 09:21 General appearance: Present: no acute distress, well-nourished - EENT Eyes: Present: PERRL, EOM intact - Neck Neck: Present: supple - Respiratory Respiratory: bilateral: CTA - Cardiovascular Rhythm: regular Heart Sounds: Present: S1 & S2 - Extremities Extremities: no ischemia Peripheral Pulses: within normal limits - Abdominal General gastrointestinal: soft, non-tender, non-distended - Integumentary Integumentary: Present: clear, dry - Psychiatric Psychiatric: appropriate mood/affect, cooperative - Neurologic Neurologic: CNII-XII intact Results - Labs CBC & Chem 7: 06/26/16 06:17 06/26/16 06:17 Labs: Laboratory Last Values WBC 9.9 K/mm3 (4.5-11.0) 06/26/16 06:17 RBC 3.24 M/mm3 (3.65-5.03) L 06/26/16 06:17 Hgb 9.8 gm/dl (11.8-15.2) L 06/26/16 06:17 Hct 30.5 % (35.5-45.6) L D 06/26/16 06:17 MCV 94 fl (84-94) 06/26/16 06:17 MCH 30 pg (28-32) 06/26/16 06:17 MCHC 32 % (32-34) 06/26/16 06:17 RDW 22.7 % (13.2-15.2) H 06/26/16 06:17 Plt Count 191 K/mm3 (140-440) 06/26/16 06:17 Lymph % (Auto) 6.2 % (13.4-35.0) L 06/26/16 06:17 [place] % (Auto) 10.5 % (0.0-7.3) H 06/26/16 06:17 Eos % (Auto) 0.0 % (0.0-4.3) 06/26/16 06:17 Baso % (Auto) 0.1 % (0.0-1.8) 06/26/16 06:17 Lymph # 0.6 K/mm3 (1.2-5.4) L 06/26/16 06:17 [place] # 1.0 K/mm3 (0.0-0.8) H 06/26/16 06:17 Eos # 0.0 K/mm3 (0.0-0.4) 06/26/16 06:17 Baso # 0.0 K/mm3 (0.0-0.1) 06/26/16 06:17 Add Manual Diff Complete 06/25/16 11:48 Total Counted 100 06/25/16 11:48 Seg Neutrophils % 83.2 % (40.0-70.0) H 06/26/16 06:17 Seg Neuts % (Manual) 93.0 % (40.0-70.0) H 06/25/16 11:48 Band Neutrophils % 0 % 06/25/16 11:48 Lymphocytes % (Manual) 7.0 % (13.4-35.0) L 06/25/16 11:48 Reactive Lymphs % (Man) 0 % 06/25/16 11:48 Monocytes % (Manual) 0 % (0.0-7.3) 06/25/16 11:48 Eosinophils % (Manual) 0 % (0.0-4.3) 06/25/16 11:48 Basophils % (Manual) 0 % (0.0-1.8) 06/25/16 11:48 Metamyelocytes % 0 % 06/25/16 11:48 Myelocytes % 0 % 06/25/16 11:48 Promyelocytes % 0 % 06/25/16 11:48 Blast Cells % 0 % 06/25/16 11:48 Nucleated RBC % Not Reportable 06/25/16 11:48 Seg Neutrophils # 8.3 K/mm3 (1.8-7.7) H 06/26/16 06:17 Seg Neutrophils # Man 9.3 K/mm3 (1.8-7.7) H 06/25/16 11:48 Band Neutrophils # 0.0 K/mm3 06/25/16 11:48 Lymphocytes # (Manual) 0.7 K/mm3 (1.2-5.4) L 06/25/16 11:48 Abs React Lymphs (Man) 0.0 K/mm3 06/25/16 11:48 Monocytes # (Manual) 0.0 K/mm3 (0.0-0.8) 06/25/16 11:48 Eosinophils # (Manual) 0.0 K/mm3 (0.0-0.4) 06/25/16 11:48 Basophils # (Manual) 0.0 K/mm3 (0.0-0.1) 06/25/16 11:48 Metamyelocytes # 0.0 K/mm3 06/25/16 11:48 Myelocytes # 0.0 K/mm3 06/25/16 11:48 Promyelocytes # 0.0 K/mm3 06/25/16 11:48 Blast Cells # 0.0 K/mm3 06/25/16 11:48 WBC Morphology Not Reportable 06/25/16 11:48 Hypersegmented Neuts Not Reportable 06/25/16 11:48 Hyposegmented Neuts Not Reportable 06/25/16 11:48 Hypogranular Neuts Not Reportable 06/25/16 11:48 Smudge Cells Not Reportable 06/25/16 11:48 Toxic Granulation Not Reportable 06/25/16 11:48 Toxic Vacuolation Not Reportable 06/25/16 11:48 Dohle Bodies Not Reportable 06/25/16 11:48 Pelger-Huet Anomaly Not Reportable 06/25/16 11:48 [place] Rods Not Reportable 06/25/16 11:48 Platelet Estimate Appears normal 06/25/16 11:48 Clumped Platelets Not Reportable 06/25/16 11:48 Plt Clumps, EDTA Not Reportable 06/25/16 11:48 Large Platelets Not Reportable 06/25/16 11:48 Giant Platelets Not Reportable 06/25/16 11:48 Platelet Satelliting Not Reportable 06/25/16 11:48 Plt Morphology Comment Not Reportable 06/25/16 11:48 RBC Morphology Not Reportable 06/25/16 11:48 Dimorphic RBCs Not Reportable 06/25/16 11:48 Polychromasia Few 06/25/16 11:48 Hypochromasia Not Reportable 06/25/16 11:48 Poikilocytosis Not Reportable 06/25/16 11:48 Anisocytosis 1+ 06/25/16 11:48 Microcytosis Not Reportable 06/25/16 11:48 Macrocytosis Not Reportable 06/25/16 11:48 Spherocytes Not Reportable 06/25/16 11:48 Pappenheimer Bodies Not Reportable 06/25/16 11:48 Sickle Cells Not Reportable 06/25/16 11:48 Target Cells Not Reportable 06/25/16 11:48 Tear Drop Cells Not Reportable 06/25/16 11:48 Ovalocytes 1+ 06/25/16 11:48 Helmet Cells Not Reportable 06/25/16 11:48 [place] Bodies Not Reportable 06/25/16 11:48 [place] Rings Not Reportable 06/25/16 11:48 [place]y Cells Not Reportable 06/25/16 11:48 Bite Cells Not Reportable 06/25/16 11:48 Crenated Cell Not Reportable 06/25/16 11:48 Elliptocytes Not Reportable 06/25/16 11:48 Acanthocytes (Spur) Not Reportable 06/25/16 11:48 Rouleaux Not Reportable 06/25/16 11:48 Hemoglobin C Crystals Not Reportable 06/25/16 11:48 Schistocytes Not Reportable 06/25/16 11:48 Malaria parasites Not Reportable 06/25/16 11:48 [place] Bodies Not Reportable 06/25/16 11:48 Hem Pathologist Commnt No 06/25/16 11:48 PT 13.4 Sec. (12.2-14.9) 06/19/16 10:45 INR 1.03 (0.87-1.13) 06/19/16 10:45 APTT 29.2 Sec. (24.2-36.6) 06/19/16 10:45 Sodium 138 mmol/L (137-145) 06/26/16 06:17 Potassium 4.3 mmol/L (3.6-5.0) 06/26/16 06:17 Chloride 105.0 mmol/L (98-107) 06/26/16 06:17 Carbon Dioxide 24 mmol/L (22-30) 06/26/16 06:17 Anion Gap 13 mmol/L 06/26/16 06:17 BUN 16 mg/dL (9-20) 06/26/16 06:17 Creatinine 0.8 mg/dL (0.8-1.5) 06/26/16 06:17 Estimated GFR > 60 ml/min 06/26/16 06:17 BUN/Creatinine Ratio 20.00 % 06/26/16 06:17 Glucose 155 mg/dL (75-100) H 06/26/16 06:17 POC Glucose 164 (70-105) H 06/26/16 05:22 Hemoglobin A1c 4.3 % (4-6) 06/26/16 06:17 Calcium 7.5 mg/dL (8.4-10.2) L 06/26/16 06:17 Total Bilirubin 0.9 mg/dL (0.1-1.2) 06/19/16 10:45 AST 40 units/L (5-40) 06/19/16 10:45 ALT 23 units/L (7-56) 06/19/16 10:45 Alkaline Phosphatase 108 units/L (35-129) 06/19/16 10:45 Total Protein 7.6 g/dL (6.3-8.2) 06/19/16 10:45 Albumin 4.2 g/dL (3.9-5) 06/19/16 10:45 Albumin/Globulin Ratio 1.2 % 06/19/16 10:45 Blood Type O POSITIVE 06/25/16 06:05 Antibody Screen Negative 06/25/16 06:05
== END 2016-06-26 14:00 | disposition home or self-care (01) | DRG 713 ==
LOC: OR 06:13 → 2B-SURG 10:40
PROVIDERS: ADMIT Urology; ATTEND Internal Medicine
PROC: 8E0W8CZ Robotic Assisted Procedure of Trunk Region, Via Natural or Artificial Opening Endoscopic (ICD-10-PCS; principal; 2016-06-25)
PROC: 0VT08ZZ Resection of Prostate, Via Natural or Artificial Opening Endoscopic (ICD-10-PCS; 2016-06-25)
DX: C61 Malignant neoplasm of prostate (principal); I69.354 Hemiplegia and hemiparesis following cerebral infarction affecting left non-dominant side; I10 Essential (primary) hypertension; B19.20 Unspecified viral hepatitis C without hepatic coma; I48.0 Paroxysmal atrial fibrillation; M19.90 Unspecified osteoarthritis, unspecified site; J44.9 Chronic obstructive pulmonary disease, unspecified; E11.9 Type 2 diabetes mellitus without complications; E78.5 Hyperlipidemia, unspecified; N40.0 Benign prostatic hyperplasia without lower urinary tract symptoms; Z82.49 Family history of ischemic heart disease and other diseases of the circulatory system; Z79.82 Long term (current) use of aspirin; Z79.84 Long term (current) use of oral hypoglycemic drugs; Z87.891 Personal history of nicotine dependence; Z95.828 Presence of other vascular implants and grafts
CPT/HCPCS: 36415; 64450; 80048; 80053; 82962; 83036; 85007; 85025; 85610; 85730; 86850; 86900; 86901; 88307; 88309; 88342; 94760; 99406; A4217; J0690; J1100; J1170; J2250; J2270; J2405; J2704; J2710; J3010; J7030